=== PATIENT | female | born 1985 | race Caucasian/White ===

== ENCOUNTER 2022-03-08 10:59 | Emergency (ER) | payer MEDICAID ==
[~2022-03-08] VITALS: Ht 172.7 cm; Wt 104.3 kg
[~2022-03-08 10:59] MED LIST: ALBMDI INH; PRED20TA PO
--- NOTE | 2022-03-08 11:00 | NUR ---
DR GARCIA AT BEDSIDE
--- NOTE | 2022-03-08 11:09 | NUR ---
PT DROVE TO ER VIA PRIVATE VEHICLE W YOUNG DAUGHTER/PT WAS WALKING WHILE OUT SHOPPING/STARTED EXPIERENCING SOB WITH AN ACUTE ASTHMA ATTACK. PT IN BED WITH BED LOWERED LOCKED AND RAILS UP.
[2022-03-08] MEDS ORDERED: ALBUTEROL SULFATE 0.083% 2.5 MG/3 ML VIAL.NEB INH ONE ×2 (11:15)
[2022-03-08] MEDS ORDERED: methylPREDNISolone SOD SUCC/PF 62.5 MG/ML VIAL IVP ONE (11:15)
[2022-03-08] MEDS ORDERED: IPRATROPIUM BROM 0.5 MG/2.5 ML VIAL.NEB (ATROVENT) INH ONE ×2 (11:15)
[2022-03-08] MEDS ORDERED: MAGNESIUM SULFATE 1 GM in NS 50 ML IV ONE (11:15)
--- NOTE | 2022-03-08 11:15 | NUR ---
PT TRIAGED AND BROUGHT INTO BED 2. PT HAS C/O SOB AND WHEEZING FOR ONE HOUR, PT STATED SHE HAD AN ASTHMA ATTACK WHILE WALKING OUTSIDE. PT HAS HS OF ASTHM, NO OTHER MEDICAL HX. RESP SHALLOW WITH SOB, RR 33. PT PLACED ON SIMPLE MASK AT 6LPM 02 SAT 98%. DR. SIDDIQUI AT BEDSIDE, R/T HAS BEED PAGED. PT DENIES PAIN. IV CAT 22G PLACE TO R HAND. DAUGHTER AT BEDSIDE, SIDERAILS UP X2.
[2022-03-08] MEDS ORDERED: MAGNESIUM SULFATE 1 GM/2 ML VIAL ONE (11:16)
[2022-03-08 11:17] VITALS: BP_SYST 125
[2022-03-08] MEDS ORDERED: methylPREDNISolone SOD SUCC/PF 62.5 MG/ML VIAL ONE (11:25)
[2022-03-08] MEDS ORDERED: ALBMDI INH (13:42)
[2022-03-08] MEDS ORDERED: PRED20TA PO (13:42)
--- NOTE | 2022-03-08 14:10 | NUR ---
Patient given written and verbal discharge instructions and verbalizes understanding. ER DR RADHA LAU discussed with patient the results and treatment provided. Patient in stable condition. Opportunity for questions provided and answered. Medication side effect fact sheet provided.
[2022-03-08 18:26] VITALS: BP_SYST 125
== END 2022-03-08 18:26 | disposition home or self-care (01) ==
LOC: SED 10:59
DX: J45.901 Unspecified asthma with (acute) exacerbation (principal); R06.02 Shortness of breath; R05.9 Cough, unspecified; Z79.899 Other long term (current) drug therapy
CPT/HCPCS: 71045; 94640; 99283; 96361; 96374; J3475; J2930; J7613; J7030